=== PATIENT | female | born 1930 | race Caucasian/White ===

== ENCOUNTER 2016-06-09 00:17 | Inpatient (IN) ==
[2016-06-09] MEDS ORDERED: LORazepam 2 MG/1 ML VIAL ONE (00:55)
[2016-06-09] MEDS ORDERED: LORazepam 2 MG/1 ML VIAL IM STA (01:09)
--- NOTE | 2016-06-09 01:32 | Emergency Department Note ---
IJames Gwan, am scribing for, and in the presence of, Dena Bob DO 01:03 . IPaulino Debra, DO, personally performed the services described in this documentation, ascribed by Erna Ramirez in my presence, and it is both accurate and complete . Arrival - Arrival ED Nursing Triage Note: FRIEND STATES THAT PATIENT CALLED HER BECAUSE HER STOMACH WAS HURTING. FRIEND STATES THAT WHEN SHE ARRIVED PATIENT WAS WEAK AND CONFUSED AND HAD A DEFICIT TO LEFT SIDE. PATIENT AWAKE, ALERT AND ABLE TO ANSWER QUESTIONS UPON TRIAGE. Mode of Arrival: Ambulatory Source: Patient, Family, Old Records Reviewed, RN Notes Reviewed - History of Present Illness Onset (ago): hour(s) Consistency: constant Severity: moderate Date of Last Menstrual Period: HYSTERECTOMY <Dena Bob - Last Filed: 06/09/16 01:36> <Nilesh Valle - Last Filed: 06/09/16 02:39> - Arrival Chief Complaint: Weakness Stated Complaint: poss.stroke - History of Present Illness HPI Narrative: Pt is a 85 y/o female, with a hx of Thyroid Disorder and HTN, who presents to the ED with a c/o abd pain with an onset today. Friend stated that she received call at 2330 from the patient stating that she felt her stomach "jumping" and that she felt sick. Upon arrival at the pt's home, the friend noted that pt seems confused, had generalized weakness and was not using her left side at all. This prompted their visit to the ED for further evaluation. During triage, friend said that the pt began this constant jerking primarily on her left side. During exam, pt is alert and responsive. She does display and constant jerky primarily on her left side. No other problems/complaints reported in ED. (Erna Ramirez) Pt is a 85 y/o female, with a hx of Thyroid Disorder and HTN, who presents to the ED with a c/o abd pain with an onset today. Friend stated that she received call at 2330 from the patient stating that she felt her stomach "jumping" and that she felt sick. Upon arrival at the pt's home, the friend noted that pt seems confused, had generalized weakness and was not using her left side at all. This prompted their visit to the ED for further evaluation. During triage, friend said that the pt began this constant jerking primarily on her left side. During exam, pt is alert and responsive. She does display and constant jerky primarily on her left side. No other problems/complaints reported in ED. (Dena Bob) Allergies/Adverse Reactions: Allergies Allergy/AdvReac Type Severity Reaction Status Date / Time cephalexin [From Keflex] Allergy Unknown/Unable Verified 06/05/15 21:22 to obtain ciprofloxacin [From Cipro] Allergy Unknown/Unable Verified 06/05/15 21:22 to obtain clindamycin Allergy Unknown/Unable Verified 06/05/15 21:22 to obtain codeine Allergy Unknown/Unable Verified 06/05/15 21:22 to obtain doxycycline [From Vibramycin] Allergy Unknown/Unable Verified 06/05/15 21:22 to obtain Penicillins Allergy Unknown/Unable Verified 06/05/15 21:22 to obtain primidone Allergy Unknown/Unable Verified 06/05/15 21:22 to obtain promethazine [From Phenergan] Allergy Unknown/Unable Verified 06/05/15 21:22 to obtain rofecoxib [From Vioxx] Allergy Unknown/Unable Verified 06/05/15 21:22 to obtain Home Medications: Home Medications Medication Instructions Recorded Confirmed Type Aspirin [Ecotrin] 81 mg PO DAILY 06/05/15 06/09/16 History Calcium Carbonate/Vitamin D3 1 each PO DAILY 06/05/15 06/09/16 History [Calcium 600 + Vit D Tablet] Gabapentin Cap/Tab [Neurontin 300 mg PO DAILY 06/05/15 06/09/16 History Cap/Tab] Levothyroxine Sodium [Levoxyl] 100 mcg PO DAILY 06/05/15 06/09/16 History Meloxicam 15 mg PO DAILY 06/05/15 06/09/16 History Omeprazole 20 mg PO DAILY 06/05/15 06/09/16 History amLODIPine [Norvasc] 5 mg PO DAILY 06/05/15 06/09/16 History Review of System - Review of System 12 point system: reviewed and no additional remarkable complaints except as stated - Review of System Constitutional: Present: other (constant jerking that began during triage) Gastrointestinal: Present: as per HPI, abdominal pain Neurological: Present: as per HPI, confusion <Dena Bob - Last Filed: 06/09/16 01:36> Medical,Surgical,& Family Hx - Medical History Cardio: History of: Hypertension Endocrine: History of: Thyroid Disorder Genitourinary: History of: Kidney Stones, Recurring Urinary Tract Infections - Surgical History Cardiac Surgeries: Sugical HX of: Cardiac Catheterization (X3) - Social History Smoking Status: Never smoker Frequency of Alcohol Use: None Type of Drug Use: None <Dena Bob - Last Filed: 06/09/16 01:36> Exam - General General appearance: alert, anxious - Head Head exam: Present: normocephalic - Eye Eye exam: Present: PERRL, EOMI, other (eyes are mildly deviated to the right. ) - ENT ENT exam: Present: normal exam - Neck Neck exam: Present: normal inspection, full ROM - Chest Chest inspection: Present: normal inspection - Respiratory Respiratory exam: Present: normal lung sounds bilaterally, rhonchi <Dena Bob - Last Filed: 06/09/16 01:36> Vital Signs: Vital Signs Temperature 97.7 F 06/09/16 00:49 Pulse Rate 114 H 06/09/16 00:49 Respiratory Rate 18 06/09/16 00:49 Blood Pressure 142/75 06/09/16 00:49 O2 Sat by Pulse Oximetry 93 L 06/09/16 00:24 Course <Dena Bob - Last Filed: 06/09/16 01:36> <Nilesh Valle - Last Filed: 06/09/16 02:39> Course Narrative: I took over the care of this patient on 06/09/2016 at 0200. This patient has a history of known meningiomas right-sided on prior head CT presented to the ER with left-sided weakness that started with last known well time at approximately 2300 on 06/08/2016. She has no prior history of strokes. Her workup in the ER included lab work as well as EKG and CT of the head and chest x -ray. She also had a urinalysis. Her urinalysis demonstrated hematuria with evidence of urinary tract infection. Apparently she was having some abdominal pain on the triage note that she is not complaining of any abdominal pain now. She was not a good candidate for TPA due to the fact that she is 85 and her symptoms started over 3 hours ago and she has meningiomas on head CT which are stable on today's head CT but for these reasons I recommended not using any TPA for this patient. I have discussed this patient's care with the hospitalist semiconductor wafers etcher stripper who will come and evaluate the patient for admission. (Nilesh Valle) Results - Labs CBC & BMP: 06/09/16 01:05 06/09/16 01:39 <Nilesh Valle - Last Filed: 06/09/16 02:39> Disposition <Dena Bob - Last Filed: 06/09/16 01:36> Case discussed with: patient, patient's family Time of Disposition: 02:39 <Nilesh Valle - Last Filed: 06/09/16 02:39> Disposition: Still a Patient Condition: Stable Instructions: Ischemic Stroke (GEN)
--- NOTE | 2016-06-09 01:46 | EKG Report ---
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
[2016-06-09 01:48] LABS: Basophils # 0.1 10*3/uL (0.0-0.2); Basophils % 0.9 % (0.0-0.8); Eosinophils # 0.3 10*3/uL (0.0-0.87); Eosinophils % 1.7 % (0.00-10.9); Hematocrit 41.6 VOL% (35.7-47.0); Hemoglobin 13.4 GM/DL (12.0-16.0); Immature Granulocytes % 1.5 %; Immature Granulocytes Absolute 0.24 #; Lymphocytes # 1.6 10*3/uL (1.4-4.0); Lymphocytes % 9.9 % (21.3-54.2); Mean Corpuscular HGB Conc 32.2 GM/DL (32-36); Mean Corpuscular Hemoglobin 29 PG (27-34); Mean Corpuscular Volume 89.7 FL (87-102); Mean Platelet Volume 9.2 FL (9.6-12.0); Monocytes % 5.9 % (1.7-12.7); Neutrophils # 13.1 10*3/uL (1.4-7.4); Neutrophils % 80.1 % (38.7-73.9); Platelet Count 567 T/CUMM (130-400); Red Blood Count 4.64 MC/CUMM (3.8-5.5); Red Cell Distribution Width 13.1 % (9.3-17.3); White Blood Count 16.3 T/CUMM (4-12)
[2016-06-09 02:03] LABS: Alanine Aminotransferase 58 U/L (13-56); Albumin 3.7 G/DL (3.4-5.0); Alkaline Phosphatase 303 U/L (45-117); Aspartate Amino Transferase 25 U/L (0-37); Blood Urea Nitrogen 33 MG/DL (7-18); Glucose 145 MG/DL (74-106); Osmolality,Calculated 295.8 MOS/KG (273-304); Potassium 4.9 MMOL/L (3.5-5.1); Sodium 144 MMOL/L (136-145); Total Protein 7.6 G/DL (6.4-8.3); Troponin I Only < 0.015 NG/ML (0.00-0.045)
[2016-06-09] MEDS ORDERED: ASPIRIN 325 MG TABLET PO STA (02:19)
[2016-06-09 02:26] LABS: Apearance,Urine CLOUDY (Clear); Bilirubin,Urine Negative (Negative); Blood, Urine Large mg/dL (Negative); Glucose,Urine (UA) 50 mg/dL (Negative); Ketones,Urine 5 mg/dL (Negative); Mucus,Urine Occasional /LPF (Occasional); Nitrite,Urine Negative (Negative); Protein,Urine 100 MG/DL; RBC,Urine 433 /HPF (0-4); Urine Color Yellow (Yellow); Urine Specific Gravity 1.017 (1.001-1.035); Urine Urobilinogen < 2.0 EU/DL (0.2-1.0); WBC,Urine 222 /HPF (0-6)
[2016-06-09] MEDS ORDERED: ASPIRIN 325 MG TABLET ONE (02:42)
--- NOTE | 2016-06-09 02:58 | Hospitalist History & Physical ---
Assessment and Plan (1) UTI (urinary tract infection) Status: Acute Current Visit: Yes (2) Acute ischemic stroke Status: Acute Current Visit: Yes (3) Recurrent urinary tract infection Status: Acute Current Visit: Yes (4) History of thyroid disorder Status: Acute Assessment and plan: Plan for this patient #1 with patient to monitored bed #2 MRI #3 carotid ultrasound #4 2-D echo #5 speech therapy consult #6 occupational therapy consult #7 physical therapy consult #8 neurology consult Current Visit: Yes History of Present Illness Chief complaint: left-sided weakness History of present illness: Ms. Waldron is a 85 year old female who presents to our hospital [facility]. Patient called for an approximately 1130 p.m. earlier this evening. Patient reportedly stated that she did not feel good. When her friend got to her house patient was weak on the left side. She will require significant assistance to get her into the vehicle. The head use a wheelchair she couldn't walk. Patient was brought to our hospital for further evaluation. In triage patient' s left side started jerking. And she had a sensation that her abdomen was jerking. Patient had a little gaze to the left. And I was consulted to admit the patient Home Medications Medication Instructions Recorded Confirmed Type Aspirin [Ecotrin] 81 mg PO DAILY 06/05/15 06/09/16 History Calcium Carbonate/Vitamin D3 1 each PO DAILY 06/05/15 06/09/16 History [Calcium 600 + Vit D Tablet] Gabapentin Cap/Tab [Neurontin 300 mg PO DAILY 06/05/15 06/09/16 History Cap/Tab] Levothyroxine Sodium [Levoxyl] 100 mcg PO DAILY 06/05/15 06/09/16 History Meloxicam 15 mg PO DAILY 06/05/15 06/09/16 History Omeprazole 20 mg PO DAILY 06/05/15 06/09/16 History amLODIPine [Norvasc] 5 mg PO DAILY 06/05/15 06/09/16 History Allergies Allergy/AdvReac Type Severity Reaction Status Date / Time cephalexin [From Keflex] Allergy Unknown/Unable Verified 06/05/15 21:22 to obtain ciprofloxacin [From Cipro] Allergy Unknown/Unable Verified 06/05/15 21:22 to obtain clindamycin Allergy Unknown/Unable Verified 06/05/15 21:22 to obtain codeine Allergy Unknown/Unable Verified 06/05/15 21:22 to obtain doxycycline [From Vibramycin] Allergy Unknown/Unable Verified 06/05/15 21:22 to obtain Penicillins Allergy Unknown/Unable Verified 06/05/15 21:22 to obtain primidone Allergy Unknown/Unable Verified 06/05/15 21:22 to obtain promethazine [From Phenergan] Allergy Unknown/Unable Verified 06/05/15 21:22 to obtain rofecoxib [From Vioxx] Allergy Unknown/Unable Verified 06/05/15 21:22 to obtain Medical,Surgical,& Family Hx - Medical History Cardio: History of: Hypertension Endocrine: History of: Thyroid Disorder Genitourinary: History of: Kidney Stones, Recurring Urinary Tract Infections - Surgical History Cardiac Surgeries: Sugical HX of: Cardiac Catheterization (X3) - Family History Family History: noncontributory - Social History Smoking Status: Never smoker Frequency of Alcohol Use: None Type of Drug Use: None 12 point system: reviewed and no additional remarkable complaints except as stated Exam - Constitutional Vitals: Period Temp Pulse Resp BP Sys/Ambriz Pulse Ox Last 24 Hr 97.7 F-97.7 F 114-114 18-18 142-142/75-75 93 General appearance: no acute distress - Head Head exam: Present: normal inspection - Eye Eye exam: Present: other (patient could not significantly look up or down with her days. But she has macular degeneration generation) - ENT ENT exam: Present: normal exam - Neck Neck exam: Present: normal inspection - Respiratory Respiratory exam: Present: clear to auscultation bilaterally - Cardiovascular Cardiovascular exam: Present: tachycardia - GI/Abdominal GI/Abdominal exam: Present: normal bowel sounds - Extremities Exam Extremities exam: Present: normal inspection - Back Exam Back exam: Present: normal inspection - Neurological Exam Neurological exam: Present: alert, other (patient has pretty significant weakness on her left side and involving both her upper and lower extremity) - Psychiatric Psychiatric exam: Present: flat affect - Skin Skin exam: Present: normal color Results - Labs CBC & BMP: 06/09/16 01:05 06/09/16 01:39
[2016-06-09] MEDS ORDERED: LABETALOL 20 MG/4 ML SYRINGE IV PRN (03:02)
[2016-06-09] MEDS: SODIUM CHLORIDE 0.9% 1,000 ML IV SCH ×2 (05:14→22:01)
[2016-06-09] MEDS: LEVOTHYROXINE 100 MCG TABLET PO SCH (07:11)
--- NOTE | 2016-06-09 07:18 | CT Report ---
CT head/brain wo con Indication: Altered mental status. CT BRAIN WITHOUT CONTRAST DLP: 1109 mGy*cm Comparison: 04/14/2010. Date of admission: 06/09/2016. Technique: Axial noncontrast CT images of the brain were obtained. Findings: Multiple partially calcified meningioma again shown over the right frontoparietal vertex. Is relatively stable, with the largest measuring 27 mm long axis, previously 26 mm. No CVA mass effect despite their appearance. No hemorrhage shown. Montgomery-white junction is maintained throughout the brain. No destructive bone lesion seen. Visualized sinuses are clear. Impression: Multiple partially calcified but stable appearing meningioma right parietal vertex region. No acute intracranial pathology. PROCEDURE INTERPRETED AT [facility] DEPARTMENT OF RADIOLOGY Final Report Signed by: Chet Glynn M.D.
--- NOTE | 2016-06-09 07:28 | XRay Report ---
XR chest 1V portable Indication: Chest pain. Abdomen pain. Chest one view: Comparison 06/05/2015. Heart size remains upper limits normal with normal mediastinal contour. Diffuse interstitial prominence of the lungs noted. Elevated left hemidiaphragm again shown. Patchy infiltrate left infrahilar lung is now present. Impression: Retrocardiac left lower lobe pneumonia. PROCEDURE INTERPRETED AT [facility] DEPARTMENT OF RADIOLOGY Final Report Signed by: Chet Glynn M.D.
[2016-06-09] MEDS ORDERED: MELOXICAM 7.5 MG TABLET PO SCH (09:00)
[2016-06-09] MEDS ORDERED: ENOXAPARIN 40 MG/0.4 ML SYRINGE SUBCUT SCH (09:00)
--- NOTE | 2016-06-09 09:01 | Ultrasound Report ---
US carotid duplex BI Indication: Stroke. No additional localizing symptoms provided. CAROTID ULTRASOUND Comparison: 04/15/2010. Findings: Grayscale, color Doppler and pulsed Doppler interrogation of the carotid and vertebral arteries performed. Severity of stenosis based on flow velocity measurements using NASCET criteria. Distal right ICA diameter: 6.0 mm Distal left ICA diameter: 5.4 mm Peak systolic flow velocities in centimeters per second are as follows: Right: CCA: 85 cm/s Proximal ICA: 51 Distal ICA: 46 ICA/CCA ratio: 0.6 Left: CCA: 69 cm/s Proximal ICA: 61 Distal ICA: 95 ICA/CCA ratio: 1.4 External carotid arteries: Both are patent with antegrade flow. Vertebral arteries: Both are patent with antegrade flow. Grayscale and color Doppler images: No significant focal plaque deposition identified, with normal color Doppler flow present. Pulse Doppler waveform interrogation: No significant spectral broadening. Impression: No hemodynamically significant stenosis of either ICA origin. PROCEDURE INTERPRETED AT [facility] DEPARTMENT OF RADIOLOGY Final Report Signed by: Chet Glynn M.D.
[2016-06-09] MEDS: ASPIRIN 325 MG TABLET PO SCH (09:23)
[2016-06-09] MEDS: CALCIUM (CARBONATE)/VITAMIN D 600 MG-400 UNIT TABLET PO SCH (09:23)
[2016-06-09] MEDS: GABAPENTIN 300 MG CAPSULE PO SCH (09:24)
[2016-06-09] MEDS: PANTOPRAZOLE 40 MG TABLET PO SCH (09:24)
[2016-06-09 09:51] LABS: Basophils # 0.1 10*3/uL (0.0-0.2); Basophils % 0.9 % (0.0-0.8); Eosinophils # 0.2 10*3/uL (0.0-0.87); Hematocrit 40.3 VOL% (35.7-47.0); Hemoglobin 13.1 GM/DL (12.0-16.0); Immature Granulocytes % 1.3 %; Immature Granulocytes Absolute 0.14 #; Lymphocytes # 1.3 10*3/uL (1.4-4.0); Lymphocytes % 12.8 % (21.3-54.2); Mean Corpuscular HGB Conc 32.5 GM/DL (32-36); Mean Corpuscular Hemoglobin 29 PG (27-34); Mean Corpuscular Volume 89.2 FL (87-102); Mean Platelet Volume 8.7 FL (9.6-12.0); Monocytes # 0.7 10*3/uL (0.11-0.8); Monocytes % 6.2 % (1.7-12.7); Neutrophils % 76.8 % (38.7-73.9); Platelet Count 430 T/CUMM (130-400); Red Blood Count 4.52 MC/CUMM (3.8-5.5); Red Cell Distribution Width 12.9 % (9.3-17.3); White Blood Count 10.4 T/CUMM (4-12)
[2016-06-09] MEDS: amLODIPine 5 MG TABLET PO SCH (10:26)
[2016-06-09] MEDS ORDERED: LORazepam 2 MG/1 ML VIAL IV ONE (10:30)
[2016-06-09 10:31] LABS: Albumin 3.2 G/DL (3.4-5.0); Bilirubin,Total 0.4 MG/DL (0.2-1.0); Calcium 9.3 MG/DL (8.5-10.1); Potassium 3.7 MMOL/L (3.5-5.1); Risk Ratio 3.27; Total Protein 7.5 G/DL (6.4-8.3); VLDL CHOLESTEROL 12.8 MG/DL
--- NOTE | 2016-06-09 12:11 | Magnetic Resonance Report ---
MRI of the brain without contrast. Indication: CVA. Altered mental status. Comparison: November 19, 2005. Sagittal T1, axial diffusion, axial T2, axial FLAIR, axial T1, axial gradient echo, coronal T2, axial ADC. The appearance of the craniovertebral junction is within normal limits. There is a mild partial empty sella. Within the right parietal convexity, there is a conglomerate of lobular extra-axial masses, with varying degrees of calcification. When compared to the 2006 exam, there is mild interval enlargement. On that exam, when contrast was administered, these lesions enhance avidly having a features consistent with meningiomas. On today's study, there is minimal edema in the adjacent parenchyma which is somewhat compressed by the mass effect. There is no midline shift. There is no ventricular effacement. Within the white matter of both cerebral hemispheres, there are moderate areas of increased T2 and FLAIR signal, consistent with chronic microvascular ischemia. These have progressed since 2006. No cortical infarcts are seen. No acute ischemic lesions are noted. On the T2 images, within the right sylvian fissure, there is a rounded signal void associated with the distal branches of the right middle cerebral artery, which measures 7 x 8.2 mm. There is no calcification present on the recent CT, and this finding was not present on the previous MRI or MRA. The venous sinuses appear patent. Impression: 1. Within the right sylvian fissure, and closely associated with the distal branches of the right middle cerebral artery, there is a rounded, 7 x 8.2 mm signal void highly suspicious for an aneurysm. This has developed since previous studies. CTA of the brain is recommended if the patient can have IV contrast, because this peripheral location may not be well visualized on MRA. 2. Mild interval increase in size of multiple lobular extra-axial masses in the right parietal convexity, consistent with meningiomas. There is mass effect on the adjacent gyri, with minimal associated edema. 3. Mildly progressive chronic microvascular ischemic change. 4. No acute ischemic lesions are seen. PROCEDURE INTERPRETED AT [facility] DEPARTMENT OF RADIOLOGY Final Report Signed by: Dr. Serena Castillo
--- NOTE | 2016-06-09 14:40 | Event Note ---
Pt gone for CT angio
--- NOTE | 2016-06-09 14:46 | Neurology Consult Note ---
History of Present Illness History of present illness: Pt is sedated. History basically obtained from the chart and some from the family. Ms. Waldron is a 85 year old female who presents to the hospital last night. Patient called approximately 1130 p.m. reportedly stated that she did not feel good. When her friend got to her house patient was weak on the left side. She required significant assistance to get her into the vehicle. She couldn't walk. Patient was brought to our hospital for further evaluation. In triage patient's left side started jerking. And she had a sensation that her abdomen was jerking. Patient had a little gaze to the left. MRI of the brain revealed possible tiny right sylvian fissure and e-stim as well as right posterior parietal meningioma. CT angiogram is pending. Home Medications Medication Instructions Recorded Confirmed Type Aspirin [Ecotrin] 81 mg PO DAILY 06/05/15 06/09/16 History Calcium Carbonate/Vitamin D3 1 each PO DAILY 06/05/15 06/09/16 History [Calcium 600 + Vit D Tablet] Gabapentin Cap/Tab [Neurontin 300 mg PO DAILY 06/05/15 06/09/16 History Cap/Tab] Levothyroxine Sodium [Levoxyl] 100 mcg PO DAILY 06/05/15 06/09/16 History Meloxicam 15 mg PO DAILY 06/05/15 06/09/16 History Omeprazole 20 mg PO DAILY 06/05/15 06/09/16 History amLODIPine [Norvasc] 5 mg PO DAILY 06/05/15 06/09/16 History Allergies Allergy/AdvReac Type Severity Reaction Status Date / Time cephalexin [From Keflex] Allergy Unknown/Unable Verified 06/05/15 21:22 to obtain ciprofloxacin [From Cipro] Allergy Unknown/Unable Verified 06/05/15 21:22 to obtain clindamycin Allergy Unknown/Unable Verified 06/05/15 21:22 to obtain codeine Allergy Unknown/Unable Verified 06/05/15 21:22 to obtain doxycycline [From Vibramycin] Allergy Unknown/Unable Verified 06/05/15 21:22 to obtain Penicillins Allergy Unknown/Unable Verified 06/05/15 21:22 to obtain primidone Allergy Unknown/Unable Verified 06/05/15 21:22 to obtain promethazine [From Phenergan] Allergy Unknown/Unable Verified 06/05/15 21:22 to obtain rofecoxib [From Vioxx] Allergy Unknown/Unable Verified 06/05/15 21:22 to obtain 12 point system: reviewed and no additional remarkable complaints except as stated Medical,Surgical,& Family Hx - Medical History Cardio: History of: Hypertension HEENT: History of: Eye Problem (MACULAR DEGENERATION) Endocrine: History of: Thyroid Disorder Genitourinary: History of: Kidney Stones, Recurring Urinary Tract Infections Gastrointestinal: History of: GERD Musculoskeletal: History of: Back/Neck Problems (BACK SURGERY MANY YEARS AGO) - Surgical History Cardiac Surgeries: Sugical HX of: Cardiac Catheterization (X3) - Social History Smoking Status: Never smoker Frequency of Alcohol Use: None Type of Drug Use: None Exam - Constitutional Vitals: Period Temp Pulse Resp BP Sys/Ambriz Pulse Ox Last 24 Hr 97.5 F-98.3 F 87-104 15-20 105-132/54-95 92-97 Exam: GENERAL: Patient is in no acute distress. NECK: Neck is supple. There is no JVD. No carotid bruits present. No thyroid masses. CVS: First and second heart sounds are normal. There is no S3 present. Regular rate and rhythm. RESPIRATORY: Lungs are clear to auscultation without any rales or rhonchi. ABDOMEN: Soft and non-tender. Bowel sounds are present. There is no hepatosplenomegaly. EXT: There is no palpable edema. Peripheral pulses are present. Skin: No rashes Central Nervous system: General: Sedated for MRI Speech: Sedated Comprehension: Cannot be assessed Facial expressions: Normal Cranial Nerves: Pupils are equally reactive to light. Doll's head eye movements are positive. No facial asymmetry seen. Motor: Bulk and Tone is normal. Strength cannot be assessed Sensory: Cannot be assessed Reflexes: 1+ and symmetrical Cerebellar function: Cannot be assessed Gait: Cannot be assessed Results - Labs CBC & BMP: 06/09/16 09:44 06/09/16 09:44 Assessment and Plan (1) Left-sided weakness Status: Acute Assessment and plan: No acute stroke on the MRI or CT scan. Differential diagnosis would include bleeding aneurysm, seizure with Valente paralysis secondary to meningismus etc. Will await for CT scan report and make further decision after that. EEG Current Visit: Yes Specialty Discharge - Follow Up or Referrals
--- NOTE | 2016-06-09 14:47 | CT Report ---
CT angio head Indication: Aneurysm on MRA. No sentinel hemorrhage. CT ANGIOGRAM [place] DLP: 782 mGy*cm Technique: Axial thin cut CT images were obtained from the skull base to the vertex during arterial phase of contrast injection. 3-D vascular MIPs reconstructions and multiplanar reformats were evaluated. Omnipaque 350, 80 cc given. Comparison: None. Findings: Right vertebral artery is the dominant inflow to the basilar system with a small left vertebral artery present. Both terminate in the basilar artery. Basilar artery is tortuous. Basilar artery terminates in bilateral ORTHODONTIST SMALL BUSINESS [employer]NER. No basilar tip aneurysm. Calcified atheromatous disease involves the bilateral internal carotid arteries without critical stenosis evident. The left A1 segment of the KELLY is atretic, less than 1 mm diameter. Primary inflow to the anterior cerebral artery is via the right A1 segment which appears to be an azygous vessel continuing up through the anterior interhemispheric fissure. An extremely small anterior communicating artery is identified. There is a 6 x 7 mm saccular aneurysm of the right MCA at the M1-M2 transition. The aneurysm extends superiorly. No evidence of hemorrhage. No calcifications associated with the aneurysm sac. The left MCA vascular territory is unremarkable without aneurysmal change. Enhancing multiple meningioma again demonstrated right posterior parietal vertex. Impression: 1. 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 2. Variant anatomy of the [place] consisting of dominant right vertebral inflow, atretic left A1 segment and the azygos [place]LLY primarily supplied off the right A1 segment. 3. Calcified atheromatous disease of the intracranial segment of both internal carotid arteries without significant stenosis. 4. Heterogeneously enhancing meningioma cluster posterior right parietal vertex. PROCEDURE INTERPRETED AT [facility] DEPARTMENT OF RADIOLOGY Final Report Signed by: Chet Glynn M.D.
--- NOTE | 2016-06-09 16:08 | Hospitalist Progress Note ---
Assessment and Plan - Time spent with patient Time spent with patient: Greater than 30 minutes (1) Saccular aneurysm Status: Acute Assessment and plan: Will attempt to arrange transfer to outside facility. Current Visit: Yes (2) Meningioma Status: Acute Assessment and plan: Findings on CT and MRI noted. Neurology on board. Current Visit: Yes (3) UTI (urinary tract infection) Status: Acute Assessment and plan: Will initiate Aztreonam. Current Visit: Yes Hospitalist: Subjective Interval history: No complaints. She was admitted overnight with left sided weakness. Exam - Constitutional Vitals: Period Temp Pulse Resp BP Sys/Ambriz Pulse Ox Last 24 Hr 96.4 F-98.3 F 78-104 15-20 105-132/54-95 91-97 General appearance: no acute distress - Head Head exam: Present: normocephalic, atraumatic - Eye Eye exam: Present: EOMI Pupils: Present: BINTA - ENT ENT exam: Present: normal exam - Neck Neck exam: Present: normal inspection - Respiratory Respiratory exam: Present: clear to auscultation bilaterally. Absent: rhonchi, wheezes - Cardiovascular Cardiovascular exam: Present: regular rate and rhythm. Absent: gallop, rubs, systolic murmur - GI/Abdominal GI/Abdominal exam: Present: normal bowel sounds, soft. Absent: distended, firm , guarding, tenderness, rebound - Extremities Exam Extremities exam: Present: normal inspection. Absent: calf tenderness, edema - Neurological Exam Neurological exam: Present: other (left sided weakness 4/5 noted.) Results - Labs CBC & BMP: 06/09/16 09:44 06/09/16 09:44 Lab Results: I have reviewed the past 24 hour labs Quality Measures - Stroke Onset of Symptoms Date: 06/08/16 Presenting Symptoms: Left hemiparesis Specialty Discharge - Follow Up or Referrals
[2016-06-09] MEDS: AZTREONAM 1,000 MG in SODIUM CHLORIDE 0.9% 100 ML IV SCH (18:16)
[2016-06-10 07:16] LABS: Basophils # 0.1 10*3/uL (0.0-0.2); Basophils % 1.1 % (0.0-0.8); Eosinophils # 0.4 10*3/uL (0.0-0.87); Eosinophils % 4.4 % (0.00-10.9); Hematocrit 41.1 VOL% (35.7-47.0); Hemoglobin 13.3 GM/DL (12.0-16.0); Immature Granulocytes % 1.4 %; Immature Granulocytes Absolute 0.13 #; Lymphocytes # 0.8 10*3/uL (1.4-4.0); Lymphocytes % 8.9 % (21.3-54.2); Mean Corpuscular HGB Conc 32.4 GM/DL (32-36); Mean Corpuscular Hemoglobin 29 PG (27-34); Mean Platelet Volume 8.8 FL (9.6-12.0); Monocytes # 0.7 10*3/uL (0.11-0.8); Monocytes % 7.1 % (1.7-12.7); Neutrophils # 7.2 10*3/uL (1.4-7.4); Neutrophils % 77.1 % (38.7-73.9); Platelet Count 497 T/CUMM (130-400); Red Blood Count 4.67 MC/CUMM (3.8-5.5); White Blood Count 9.4 T/CUMM (4-12)
[2016-06-10] MEDS: AZTREONAM 1,000 MG in SODIUM CHLORIDE 0.9% 100 ML IV SCH ×2 (07:42→17:26)
[2016-06-10] MEDS: LEVOTHYROXINE 100 MCG TABLET PO SCH (07:42)
[2016-06-10 07:43] LABS: Osmolality,Calculated 285.8 MOS/KG (273-304); Potassium 3.7 MMOL/L (3.5-5.1)
[2016-06-10] MEDS: CALCIUM (CARBONATE)/VITAMIN D 600 MG-400 UNIT TABLET PO SCH (08:31)
[2016-06-10] MEDS: GABAPENTIN 300 MG CAPSULE PO SCH (08:31)
[2016-06-10] MEDS: ASPIRIN 325 MG TABLET PO SCH (08:31)
[2016-06-10] MEDS: amLODIPine 5 MG TABLET PO SCH (08:31)
[2016-06-10] MEDS: PANTOPRAZOLE 40 MG TABLET PO SCH (08:31)
--- NOTE | 2016-06-10 11:37 | ECHO Report ---
Guadalupe Waldron Exam Date: 06/09/2016 09:08 Referring Physician: Technologist: Minnie VERAS Age: 85 Ht (in): Wt (lb): Gender: F Exam Location: [facility] Echo Indications: UTI, acute ischemic stroke, L sided weakness, HTN BP: / HR: Rhythm: Sinus Technical Quality: IMPRESSIONS Technically adequate study 1+ left atrial enlargement 2+ concentric LVH Normal LV systolic function with ejection fraction estimated be 60% without segmental wall motion normality Heavy aortic sclerosis without stenosis (risk factor for stroke) 2+ aortic regurgitation Probable 1+ tricuspid regurgitation with RVSP 24 mmHg plus RAP MEASUREMENTS (Male / Female) Normal Values 2D ECHO LV Diastolic Diameter PLAX 3.2 cm 4.2 - 5.9 / 3.9 - 5.3 cm LV Systolic Diameter PLAX 2.5 cm LV Fractional Shortening PLAX 23.4 % IVS Diastolic Thickness 1.5 cm 0.6 - 1.0 / 0.6 - 0.9 cm LVPW Diastolic Thickness 1.1 cm 0.6 - 1.0 / 0.6 - 0.9 cm RV Internal Dim ED PLAX 2.5 cm Aortic Root Diameter 2.5 cm LA Systolic Diameter LX 4.3 cm 3.0 - 4.0 / 2.7 - 3.8 cm DOPPLER TR Peak Velocity 247.0 cm/s TR Peak Gradient 24.4 mmHg FINDINGS Left Ventricle Moderately increased septal wall thickness. Mildly increased posterior wall thickness. Mild concentric left ventricular hypertrophy with diastolic dysfunction. Left ventricular ejection fraction is estimated at Right Ventricle Normal right ventricular size. Right Atrium Normal right atrial size. Left Atrium Moderately increased left atrial diameter. Mitral Valve Mildly thickened mitral valve with mild mitral regurgitation. Aortic Valve Aortic valve sclerosis without stenosis. [id number] aortic valve regurgitation. Tricuspid Valve Morphologically normal tricuspid valve. Moderate tricuspid valve regurgitation. Tricuspid regurgitation velocities suggest a PAP of 24.4 mmHg + RAP. Pulmonic Valve Morphologically normal pulmonic valve. Pericardium No pericardial effusion. Aorta Normal size aortic root and proximal ascending aorta. Pierce Wagoner (Electronically Signed) Final Date: 10 June 2016 11:36
--- NOTE | 2016-06-10 13:51 | Neurology Progress Note ---
Neurology - PN : Subjective Interval history: seems to be doing better. There is questionable choreoform movement in the left upper extremity. CTA reveals 6 x 7 mm small tiny right MCA distribution secondary aneurysm. MRI of the brain revealed multiple large right parietal lobe meningioma is some mass effect. Exam (Progress Note) - Constitutional Vitals: Period Temp Pulse Resp BP Sys/Ambriz Pulse Ox Last 24 Hr 96.4 F-98.2 F 78-96 16-22 111-148/65-79 91-97 Exam: GENERAL: Patient is in no acute distress. NECK: Neck is supple. There is no JVD. No carotid bruits present. No thyroid masses. CVS: First and second heart sounds are normal. There is no S3 present. Regular rate and rhythm. RESPIRATORY: Lungs are clear to auscultation without any rales or rhonchi. ABDOMEN: Soft and non-tender. Bowel sounds are present. There is no hepatosplenomegaly. EXT: There is no palpable edema. Peripheral pulses are present. Skin: No rashes Central Nervous system: General: Alert, awake and Oriented x 3 Speech: Fluent Comprehension: Intact and normal Facial expressions: Normal Cranial Nerves: CN1/Olfactory: Normal CN II/ Optic: Normal, Visual Bellamy unreliable CN III, and : BINTA & EOMI CN V: Normal & intact CN VII: face is symmetric CNVIII: Normal CN XI/X/XI/XII: Intact and Normal Motor: Bulk and Tone is normal. Strength in the right 5/5 Strength in the left 3/5 Sensory: Grossly intact for all the modalities of PP, LT and temp sense Reflexes: 1+ and symmetrical Cerebellar function: Normal finger to nose and heel to montaño testing. Gait: Not tested this time Results - Labs CBC & BMP: 06/10/16 06:43 06/10/16 06:43 Assessment and Plan (1) Left-sided weakness Status: Acute Assessment and plan: She clearly has left-sided weakness which could be secondary to either a tiny stroke which we are missing on MRI or due to large meningiomas and mass effect. We'll start Decadron Consult [facility] Signoff call when necessary Current Visit: Yes Quality Measures - Stroke Onset of Symptoms Date: 06/08/16 Presenting Symptoms: Left hemiparesis Specialty Discharge - Follow Up or Referrals
--- NOTE | 2016-06-10 14:43 | Discharge Summary ---
Hospital Course - Hospital Course Hospital Course: Patient presented with complaints of left-sided weakness. In the ED she had a CT of her head which revealed a stable appearing meningioma in the right parietal vertex. Internal medicine was consulted for admission. Brain MRI was performed which revealed no evidence of stroke however a right MCA saccular aneurysm was noted. Furthermore multiple meningiomas were seen in the right parietal location. There was no midline shifting however there was minimal edema in the adjacent parenchyma which is compressed by mass effect. Patient had a CTA to evaluate the aneurysm which confirmed a 6 x 7 mm MCA aneurysm. Attempts were made to transfer the patient for neurosurgical evaluation to [facility] in [place] and [facility] however this was unsuccessful. I spoke to [address] to include [address] Cj Guzman, Dr. Ferraro in [place] and a neurosurgeon at [facility] regarding transfer however Dr. Corona refused direct admission, Dr. Ferraro was incapable of endovascular intervention and the neurosurgeon at [facility] refused direct admission to his service. Attempt was made for direct admission to at , and Dr Prado refused direct admission. Neurology had been consulted and was following the patient during her admission and initiated Decadron given the circumstances agreed to admit the patient to rehab. Ultimately the patient will be referred as an outpatient to neurosurgery. The patient, while hospitalized, had an EEG and results were pending by discharge. She had no cranial nerve involvement and mild weakness in the left side. - Time spent with patient Time with patient DS: Greater than 30 minutes Diagnosis - Discharge Diagnosis (1) Saccular aneurysm Status: Acute (2) Meningioma Status: Acute (3) UTI (urinary tract infection) Status: Acute Specialty Discharge - Follow Up or Referrals Discharge Plan - Discharge Data Disposition: Disch/Xfer to Snf Condition at Discharge: Stable Discharge Diet: advance to your usual diet - Discharge Medications New Simvastatin [Zocor] 10 mg PO BEDTIME #30 tablet Aspirin Tab 325 mg PO DAILY #0 tablet Dexamethasone Tab [Decadron Tab] 4 mg PO BID tablet Continue Calcium Carbonate/Vitamin D3 [Calcium 600 + Vit D Tablet] 1 each PO DAILY amLODIPine [Norvasc] 5 mg PO DAILY Omeprazole 20 mg PO DAILY Levothyroxine Sodium [Levoxyl] 100 mcg PO DAILY Gabapentin Cap/Tab [Neurontin Cap/Tab] 300 mg PO DAILY Discontinued Aspirin [Ecotrin] 81 mg PO DAILY Meloxicam 15 mg PO DAILY - Follow Up or Referral - Forms/Instructions Instructions: Ischemic Stroke (GEN) Exam - Constitutional Vitals: Period Temp Pulse Resp BP Sys/Ambriz Pulse Ox Last 24 Hr 96.4 F-98.2 F 78-96 16-22 111-148/65-79 91-97 General appearance: normal weight, no acute distress - Head Head exam: Present: normal inspection, normocephalic, atraumatic - Eye Eye exam: Present: EOMI Pupils: Present: BINTA - ENT ENT exam: Present: normal exam - Neck Neck exam: Present: normal inspection - Respiratory Respiratory exam: Present: clear to auscultation bilaterally - Cardiovascular Cardiovascular exam: Present: regular rate and rhythm - GI/Abdominal GI/Abdominal exam: Present: normal bowel sounds - Extremities Exam Extremities exam: Present: normal inspection - Neurological Exam Neurological exam: Present: CN II-XII intact, other (5-/5 weakness and rigidity in left side) Discharge Results Procedures and tests throughout hospitalization: Pending Orders 06/09/16 14:50 NE EEG adult awake/drowsy Routine 06/11/16 04:00 BMP [Basic Metabolic Panel] IN AM Comp Blood Count Auto Diff IN AM 06/12/16 04:00 BMP [Basic Metabolic Panel] IN AM Comp Blood Count Auto Diff IN AM 06/13/16 04:00 BMP [Basic Metabolic Panel] IN AM Comp Blood Count Auto Diff IN AM 06/14/16 04:00 BMP [Basic Metabolic Panel] IN AM Comp Blood Count Auto Diff IN AM Labs on day of discharge: Labs from last 24 hours 06/10/16 06/10/16 06:43 06:43 WBC 9.4 RBC 4.67 Hgb 13.3 Hct 41.1 MCV 88.0 MCH 29 MCHC 32.4 RDW 13.0 Plt Count 497 H MPV 8.8 L Neut % (Auto) 77.1 H Lymph % (Auto) 8.9 L [place] % (Auto) 7.1 Eos % (Auto) 4.4 Baso % (Auto) 1.1 H Neut # (Auto) 7.2 Lymph # (Auto) 0.8 L [place] # (Auto) 0.7 Eos # (Auto) 0.4 Baso # (Auto) 0.1 Immature Gran % 1.4 Nucleated RBC % 0.0 Immature Gran # 0.13 Nucleated RBCs # 0.00 Sodium 144 Potassium 3.7 Chloride 108 H Carbon Dioxide 24 Anion Gap 15.7 H BUN 14 Creatinine 0.40 L GFR Calculation 83 BUN/Creatinine Ratio 35.00 H Glucose 77 Calculated Osmolality 285.8 Calcium 9.0 Preliminary micro results at discharge 06/09/16 Unknown Urine Culture - Preliminary Urine,Voided No Growth at 24 hours. DS: Provider Date of admission: 06/09/16 03:02 Primary care physician: . No PCP Attending physician on admission: Charisse Ballard MD Consults: 06/09/16 15:35 Consult to Case Mgmt/Social Srvs [CONS] Routine Reason for Case Mgmt/Social Srvs: Other Consult Comment: transfer to [place] for Neurosurgery 06/10/16 13:52 Consult to Case Mgmt/Social Srvs [CONS] Routine Reason for Case Mgmt/Social Srvs: Rehab Discharging clinician: Charisse Ballard MD Expected date of discharge: 06/10/16
[2016-06-10] MEDS: DEXAMETHASONE 4 MG TABLET PO SCH (20:58)
[2016-06-10] MEDS ORDERED: DEXAMETHASONE 4 MG TABLET PO SCH (21:00)
[2016-06-10] MEDS ORDERED: diphenhydrAMINE CAP 50 MG CAPSULE PO PRN (23:11)
[2016-06-11] MEDS: AZTREONAM 1,000 MG in SODIUM CHLORIDE 0.9% 100 ML IV SCH (04:08)
[2016-06-11] MEDS: LEVOTHYROXINE 100 MCG TABLET PO SCH (06:10)
[2016-06-11 07:24] LABS: Basophils # 0.1 10*3/uL (0.0-0.2); Basophils % 0.6 % (0.0-0.8); Eosinophils % 0.1 % (0.00-10.9); Hematocrit 43.3 VOL% (35.7-47.0); Hemoglobin 13.9 GM/DL (12.0-16.0); Immature Granulocytes % 1.3 %; Immature Granulocytes Absolute 0.12 #; Lymphocytes # 0.5 10*3/uL (1.4-4.0); Mean Corpuscular HGB Conc 32.1 GM/DL (32-36); Mean Corpuscular Hemoglobin 29 PG (27-34); Mean Corpuscular Volume 89.5 FL (87-102); Mean Platelet Volume 8.6 FL (9.6-12.0); Monocytes % 0.4 % (1.7-12.7); Neutrophils # 8.2 10*3/uL (1.4-7.4); Neutrophils % 91.6 % (38.7-73.9); Platelet Count 557 T/CUMM (130-400); Red Blood Count 4.84 MC/CUMM (3.8-5.5); Red Cell Distribution Width 12.6 % (9.3-17.3)
[2016-06-11 07:59] LABS: Calcium 9.2 MG/DL (8.5-10.1); Osmolality,Calculated 289.8 MOS/KG (273-304); Potassium 4.2 MMOL/L (3.5-5.1)
[2016-06-11 08:18] LABS: Hypochromasia Slight; Lymphocytes 2 % (20-55); Platelet Estimate Increased; Segmented Neutrophils 97 % (50-85); Total Cells Counted 100
--- NOTE | 2016-06-11 08:41 | EKG Report ---
Stationary ECG Study [facility] Test Date: 06/11/2016 8:39:49 AM Pat Name: JOVI ADAM Department: Room: 522 Gender: F Project Builder: CASSIUS : 1930 Requested by: Charisse Vera Georgi Order Number: [id number] Reading MD: SHEILA GRAVES Intervals [place]ierks Rate: 105 P: 40 IN: 156 QRS: 37 QRSD: 77 T: 57 QT: 338 QTc: 399 Interpretive Statements SINUS TACHYCARDIA WITH OCCASIONAL SUPRAVENTRICULAR PREMATURE COMPLEXES POSSIBLE LEFT ATRIAL ABNORMALITY Electronically Signed On 06-15-16 11:09:32 PRODUCT MGMT DEV MANAGER by SHEILA GRAVES [email or web address]
[2016-06-11] MEDS: CALCIUM (CARBONATE)/VITAMIN D 600 MG-400 UNIT TABLET PO SCH (09:15)
[2016-06-11] MEDS: ASPIRIN 325 MG TABLET PO SCH (09:15)
[2016-06-11] MEDS: GABAPENTIN 300 MG CAPSULE PO SCH (09:15)
[2016-06-11] MEDS: amLODIPine 5 MG TABLET PO SCH (09:15)
[2016-06-11] MEDS: DEXAMETHASONE 4 MG TABLET PO SCH (09:16)
[2016-06-11] MEDS: PANTOPRAZOLE 40 MG TABLET PO SCH (09:16)
--- NOTE | 2016-06-11 09:25 | CT Report ---
CT abdomen pelvis wo con Indication: Kidney stones. Comparison: None. Technique: CT of the abdomen and pelvis was performed without administration of intravenous contrast. Findings: Pleural-based pulmonary nodule right lower lobe measures 6.5 mm image 3. Calcified nodule right lower lobe is present image #14. Small diaphragmatic eventration is noted posteriorly involving the right hemidiaphragm image #24. Minimal dependent atelectatic changes are noted within the right lower lobe. Left lung demonstrates small calcified nodule compatible with granuloma image #14. No pleural effusions are present. Mild cardiomegaly is demonstrated. A small hiatal hernia is present. Gallbladder is not clearly identified and may be surgically absent. Noncontrast enhanced appearance of the liver is unremarkable. Spleen is normal in size and contains multiple punctate calcifications compatible with sequelae of prior granulomatous disease. The pancreas demonstrates no significant abnormality. Left adrenal nodule measures 15 mm in transverse dimension. This averages -14 Hounsfield units of attenuation compatible with adrenal adenoma. Adrenal glands are otherwise unremarkable. Each kidney demonstrates numerous small 1 to 2 mm calcifications compatible with nonobstructing nephroliths. This is compatible with provided history of kidney stones. No distinct ureterolithiasis is demonstrated. The aorta demonstrates diffuse intimal calcifications extends into the iliac arteries. No aneurysmal dilatation is present. With exception of the previously described hiatal hernia, stomach, duodenum, and small bowel demonstrate no significant abnormalities. Colonic diverticuli involving the cecum are noted. Additional small bowel diverticula are noted involving the terminal ileum. Additional diverticula are noted involving sigmoid colon and upper rectum. A pessary is present. Uterus is surgically absent. Bones and soft tissues demonstrate no evidence of acute pathology. Loss of intervertebral disc space at L4-5 is moderate. Soft tissues and muscular trabecular body wall demonstrate no acute findings. Multiple calcifications present within the right flank are compatible with injection granulomas. Impression: 1. Colonic diverticulosis as well as small bowel diverticulosis is present without findings to suggest acute diverticulitis. 2. Bilateral nonobstructing renal stones are present compatible with provided history. 3. Other nonacute findings are present as detailed. 06/11/2016 9:17 AM PROCEDURE INTERPRETED AT [facility] DEPARTMENT OF RADIOLOGY Final Report Signed by: Dr. Bal England
[2016-06-11 09:52] VITALS: BP 148/86
--- NOTE | 2016-06-15 14:59 | Electroencephalogram ---
DATE OF STUDY: 06/15/2016 HISTORY: An 85-year-old female with a history of left-sided weakness. INTRODUCTION: A digital EEG was performed using the standard 10/20 system of electrode placement wi th one channel of EKG monitoring. Photic stimulation is performed. DESCRIPTION OF RECORD: The background is somewhat disorganized but consists of 8 to 8.5 hertz moder ate amplitude bilaterally symmetrical rhythm. Photic stimulation elicits a driving response at all flash frequencies. Hyperventilation was not performed. Drowsiness and sleep is not achieved. Ther e are no focal, sharp-wave, spike, or wave activity seen. Heart rate 94 beats per minute. IMPRESSION: NORMAL EEG DURING WAKEFULNESS. CLINICAL CORRELATION: No focal nor epileptiform features are seen. Normal EEG does not rule out th e diagnostic possibility of epilepsy. Clinical correlation is suggested.
== END 2016-06-11 11:15 | DRG 91 ==
LOC: N.ED 00:17 → N.EDINP 03:02 → N.5E 04:08
PROVIDERS: ADMIT Internal Medicine; ATTEND Internal Medicine